=== PATIENT | female | born 1990 | race Caucasian/White ===

== ENCOUNTER → 2020-01-22 | Outpatient (CLI) | payer SELFPAY | LOC: M OUTALCOH 09:05 | PROVIDERS: ATTEND Psychiatry & Neurology Addiction Medicine | DX: Z03.89 Encounter for observation for other suspected diseases and conditions ruled out (principal) ==

== ENCOUNTER 2020-02-01 14:00 | Outpatient (RCR) | payer SELFPAY | END 2020-02-19 | LOC: M OUTALCOH 14:00 | PROVIDERS: ATTEND Psychiatry & Neurology Addiction Medicine | DX: Z03.89 Encounter for observation for other suspected diseases and conditions ruled out (principal) | CPT/HCPCS: 90834; H0050 ==

== ENCOUNTER 2021-01-13 09:50 | Emergency (ER) | payer SELFPAY ==
[~2021-01-13] VITALS: Ht 160 cm; Wt 74.3 kg
[2021-01-13 10:56] LABS: HEMATOCRIT 49.7 % (42.0-52.0); HEMOGLOBIN 16.9 g/dl (13.5-17.5); MEAN CORPUSCULAR HEMOGLOBIN 31.5 pg (27.0-33.0); MEAN CORPUSCULAR VOLUME 92.6 fl (80.0-96.0); PLATELET COUNT, AUTOMATED 257 10^3/uL (150-450); RED BLOOD COUNT 5.37 10^6/uL (4.30-6.10); WHITE BLOOD COUNT 6.6 10^3/uL (4.0-10.0)
[2021-01-13 11:39] LABS: BLOOD UREA NITROGEN 11 MG/DL (7-18); CALCIUM LEVEL 9.6 MG/DL (8.5-10.1); CARBON DIOXIDE LEVEL 27 MEQ/L (21-32); CHLORIDE LEVEL 102 MEQ/L (98-107); GLOMERULAR FILTRATION RATE > 60.0 (>60); GLUCOSE, FASTING 95 MG/DL (70-100); POTASSIUM SERUM 3.9 MEQ/L (3.5-5.1); SODIUM LEVEL 136 MEQ/L (136-145)
[2021-01-13 11:48] LABS: BASO # 0.1 10^3/uL (0.0-0.2); BASO % 1.1 % (0.0-1.0); EOS # 0.1 10^3/uL (0.0-0.5); EOS % 0.8 % (0.0-3.0); LYMPH # 1.6 10^3/uL (1.5-5.0); LYMPH % 24.8 % (24.0-44.0); MONO # 0.7 10^3/uL (0.0-0.8); NEUTROPHILS % 61.8 % (36.0-66.0)
[2021-01-13 13:03] LABS: FREE T4 0.78 NG/DL (0.76-1.46)
[2021-01-13] MEDS ORDERED: MECL1TAB31 PO (13:07)
[2021-01-13 13:20] VITALS: BP 132/88
--- NOTE | 2021-01-13 16:51 | ECGEPIP ---
[facility] - ED Test Date: 2021-01-13 Pat Name: DWIGHT STONE Department: Room: - Gender: Male [employer] Tender: RUIZ : 1990 Requested By: Carly Mc Order Number: [id number] Reading MD: Husam Murguia Measurements Intervals [place] Rate: 87 P: 42 OK: 154 QRS: -26 QRSD: 104 T: 12 QT: 362 QTc: 435 Interpretive Statements Normal Sinus Rhythm Comparison tracing not on file Electronically Signed on 01-13-2021 16:51:14 EST by Husam Murguia
== END 2021-01-13 13:38 | disposition home or self-care (01) ==
LOC: M ED 09:50 → EDSEX 09:50 → M ED 13:38
DX: R42 Dizziness and giddiness (principal); J30.81 Allergic rhinitis due to animal (cat) (dog) hair and dander

== ENCOUNTER → 2023-04-06 | Outpatient (CLI) | payer OTHER ==
[~2023-04-06] MED LIST: MECL1TAB31 PO
== END ==
LOC: M RAD 11:09
PROVIDERS: ATTEND Chiropractor
DX: M51.36 Other intervertebral disc degeneration, lumbar region (principal); M99.03 Segmental and somatic dysfunction of lumbar region; M54.13 Radiculopathy, cervicothoracic region; M99.01 Segmental and somatic dysfunction of cervical region; M54.6 Pain in thoracic spine; M99.02 Segmental and somatic dysfunction of thoracic region